=== PATIENT | male | born 1975 | race Caucasian/White ===

== ENCOUNTER → 2016-06-20 | Outpatient (REF) | payer OTHER | LOC: M SFHCADAM 16:31 | PROVIDERS: ATTEND Family Medicine | DX: E11.9 Type 2 diabetes mellitus without complications (principal) ==

== ENCOUNTER → 2016-11-22 | Outpatient (REF) | payer OTHER | LOC: M SFHCADAM 16:50 | PROVIDERS: ATTEND Family Medicine | DX: E11.9 Type 2 diabetes mellitus without complications (principal) ==

== ENCOUNTER → 2017-07-28 | Outpatient (REF) | payer OTHER ==
[2017-07-28 20:10] LABS: BASO # 0.1 10^3/uL (0.0-0.2); BASO % 0.9 % (0.0-1.0); EOS # 0.2 10^3/uL (0.0-0.50); EOS % 2.2 % (0.0-3.0); HEMATOCRIT 46.3 % (42.0-52.0); HEMOGLOBIN 15.7 g/dl (14.0-18.0); IMMATURE GRANULOCYTE % 0.3 % (0-3.0); LYMPH # 3.4 10^3/uL (1.5-4.5); LYMPH % 43.6 % (24.0-44.0); MEAN CORPUSCULAR HEMOGLOBIN 29.7 pg (27.0-33.0); MEAN CORPUSCULAR HGB CONC 33.9 g/dl (32.0-36.5); MEAN CORPUSCULAR VOLUME 87.5 fl (80.0-96.0); MONO # 0.5 10^3/uL (0.0-0.8); MONO % 5.8 % (0.0-5.0); NEUTROPHILS # 3.6 10^3/uL (1.8-7.7); NEUTROPHILS % 47.2 % (36.0-66.0); PLATELET COUNT, AUTOMATED 262 10^3/uL (150-450); RED BLOOD COUNT 5.29 10^6/uL (4.30-6.10); RED CELL DISTRIBUTION WIDTH 12.4 % (11.5-14.5); WHITE BLOOD COUNT 7.7 10^3/uL (4.0-10.0)
[2017-07-28 20:16] LABS: ALBUMIN 4.1 GM/DL (3.2-5.2); ALBUMIN/GLOBULIN RATIO 1.28 (1.00-1.93); ALKALINE PHOSPHATASE 59 U/L (45-117); ALT/SGPT 45 U/L (12-78); ANION GAP 9 MEQ/L (8-16); AST/SGOT 27 U/L (7-37); BILIRUBIN,TOTAL 0.4 MG/DL (0.2-1.0); BLOOD UREA NITROGEN 15 MG/DL (7-18); CALCIUM LEVEL 9.8 MG/DL (8.5-10.1); CARBON DIOXIDE LEVEL 29 MEQ/L (21-32); CHLORIDE LEVEL 103 MEQ/L (98-107); CREATININE FOR GFR 0.91 MG/DL (0.70-1.30); GLOMERULAR FILTRATION RATE > 60.0 (>60); GLUCOSE, FASTING 136 MG/DL (70-100); POTASSIUM SERUM 4.2 MEQ/L (3.5-5.1); SODIUM LEVEL 141 MEQ/L (136-145); TOTAL PROTEIN 7.3 GM/DL (6.4-8.2)
[2017-07-28 21:00] LABS: ESTIMATED AVERAGE GLUCOSE 163 MG/DL (60-110); HEMOGLOBIN A1c 7.3 %
== END ==
LOC: M SFHCADAM 16:14
DX: E11.9 Type 2 diabetes mellitus without complications (principal)

== ENCOUNTER → 2017-07-28 | Outpatient (CLI) | payer OTHER | LOC: M ADAMS 16:10 | DX: M19.011 Primary osteoarthritis, right shoulder (principal); M19.012 Primary osteoarthritis, left shoulder | CPT/HCPCS: 73030 ==

== ENCOUNTER → 2017-12-08 | Outpatient (REF) | payer OTHER ==
[2017-12-08 20:11] LABS: ESTIMATED AVERAGE GLUCOSE 183 MG/DL (60-110)
== END ==
LOC: M SFHCADAM 15:16
DX: E11.9 Type 2 diabetes mellitus without complications (principal)

== ENCOUNTER → 2017-12-31 | Outpatient (REF) | payer OTHER ==
[2017-12-31 20:57] LABS: CREATININE, URINE 51.5 MG/DL; MALB URINE SIEMENS 6.2 MG/L
== END ==
LOC: M SFHCADAM 17:22
DX: E11.9 Type 2 diabetes mellitus without complications (principal)
CPT/HCPCS: 82043

== ENCOUNTER 2019-03-07 12:12 | Emergency (ER) | payer OTHER ==
[~2019-03-07] VITALS: Ht 182.9 cm; Wt 105.4 kg
[2019-03-07] MEDS ORDERED: ASPI81CH33 PO (12:26)
[2019-03-07] MEDS ORDERED: GLIP5TAB8 PO (12:26)
[2019-03-07] MEDS ORDERED: METF500T13 PO (12:26)
[2019-03-07 13:47] LABS: BASO # 0.1 10^3/uL (0.0-0.2); BASO % 0.9 % (0.0-1.0); EOS # 0.1 10^3/uL (0.0-0.5); EOS % 1.3 % (0.0-3.0); HEMATOCRIT 47.1 % (42.0-52.0); HEMOGLOBIN 16.2 g/dl (13.5-17.5); LYMPH # 2.4 10^3/uL (1.5-5.0); LYMPH % 30.8 % (24.0-44.0); MEAN CORPUSCULAR HEMOGLOBIN 29.5 pg (27.0-33.0); MEAN CORPUSCULAR HGB CONC 34.4 g/dl (32.0-36.5); MEAN CORPUSCULAR VOLUME 85.6 fl (80.0-96.0); MONO # 0.4 10^3/uL (0.0-0.8); MONO % 5.5 % (0.0-5.0); NEUTROPHILS # 4.8 10^3/uL (1.5-8.5); NEUTROPHILS % 61.1 % (36.0-66.0); PLATELET COUNT, AUTOMATED 230 10^3/uL (150-450); WHITE BLOOD COUNT 7.8 10^3/uL (4.0-10.0)
--- NOTE | 2019-03-07 14:26 | REP ---
LUMBAR SPINE COMPLETE: 03/07/2019. Clinical history: Trauma, fell. Sacral coccygeal pain. Comparison: Sacrum, coccyx this date. Findings: The normal lordosis is maintained. There is very slight narrowing at the L5-S1 disc space but no other disc space narrowing and no compression deformity of destructive lesion. Some minor hypertrophic facet changes at L5-S1 but no spondylolysis or spondylolisthesis. AP view shows pedicles, spinous and transverse processes all intact. Lower thoracic vertebral levels and visualized ribs intact. Sacral ala, foramina, SI joints unremarkable. The iliac wings and the hip joint spaces are symmetric and preserved. Impression: 1. Negative lumbar spine series for compression fracture, malalignment or spondylolysis. There is minimal degenerative disc change at L5-S1. No other finding. Electronically Signed by Rome Rea MD 03/07/2019 07:07 P
--- NOTE | 2019-03-07 14:30 | REP ---
SACRUM COCCYX: 03/07/2019. Clinical history: Trauma, patient fell with pain radiating into the back. States "tail bone injury" Comparison: Lumbar series today. Findings: Three views were provided. Inlet, outlet view shows sacral ala and foramina symmetric. SI joints symmetric and normal. The pelvic ring intact. Pubic rami, symphysis pubis were intact. Visualized hips symmetric and unremarkable. There are a few pelvic phleboliths. Lateral view shows asymmetric anterior widening of the space between the S5 lowermost sacral segment and the first coccygeal segment. This may be chronic or acute. Anterior angulation of the distal three segments may also represent a normal appearance. Please correlate clinically. Impression: 1. Sacral ala, foramina and SI joints were symmetric and grossly unremarkable. 2. Asymmetric widening anteriorly at the articulation between the first coccygeal segment and the fifth sacral segment seen on the lateral view. This may be acute or chronic. Please correlate clinically. No displaced fracture. Electronically Signed by Rome Rea MD 03/07/2019 07:07 P
[2019-03-07] MEDS ORDERED: KETOROLAC 30 MG/ML VIAL (J1885) IM ONE (15:00)
[2019-03-07 15:32] VITALS: BP 157/86
[2019-03-07] MEDS ORDERED: GABA-1171 PO (15:39)
[2019-03-07] MEDS ORDERED: NORC1TAB7 PO (15:39)
[2019-03-07] MEDS ORDERED: IBUP80TA PO (15:39)
--- NOTE | 2019-03-08 07:33 | REP ---
CT LUMBAR SPINE WITHOUT CONTRAST: 03/07/2019. Clinical history: Back injury, low back pain. Comparison: Lumbar spine x-ray today. Technique: Axial images with coronal and sagittal reconstructions are reviewed. Normal lordosis is maintained. There is narrowing posteriorly at the L5-S1 level with the remainder of that disc height preserved. The other disc space heights and all vertebral body heights are intact. I see no spondylolysis or spondylolisthesis. The lower aspect of T12 and associated ribs were intact. The T12-L1 level shows no disc bulge or herniation and no spinal or foraminal stenosis. At L1-2, there is no disc bulge or herniation and no spinal or foraminal stenosis. At L2-3, minimal disc bulge flattening the ventral thecal sac but no central canal or foraminal stenosis. At L3-4, there is mild disc bulge flattening the ventral thecal sac. Ligamentum flavum hypertrophy is noted. Cross-sectional area of the canal is mildly diminished. Foramina are adequate. At L4-5, there is broad-based disc bulge and some ligamentum hypertrophy. Cross-sectional area of the canal is slightly decreased. The foramina were grossly intact. At L5-S1, there is broad-based disc bulge. The foramina may have encroachment due to the bulge extending into both foramina. Impression: 1. Multilevel degenerative disc disease with disc bulges suggested at L2-3 through L5-S1. Some central canal stenosis due to combined factors at L3-4 and L4-5, minimally at L5-S1. 2. Some foraminal encroachment at L5-S1 is suggested and likely at L4-L5 as well. These findings appear chronic. No fracture or other acute finding. Electronically Signed by Rome Rea MD 03/08/2019 08:49 A
== END 2019-03-07 15:47 | disposition home or self-care (01) ==
LOC: M ED 12:12
DX: S30.0XXA Contusion of lower back and pelvis, initial encounter (principal); W18.39XA Other fall on same level, initial encounter; Y92.89 Other specified places as the place of occurrence of the external cause; M48.061 Spinal stenosis, lumbar region without neurogenic claudication; M51.17 Intervertebral disc disorders with radiculopathy, lumbosacral region; E11.9 Type 2 diabetes mellitus without complications; M10.9 Gout, unspecified; M41.9 Scoliosis, unspecified; Z79.899 Other long term (current) drug therapy; Z79.84 Long term (current) use of oral hypoglycemic drugs; Z79.82 Long term (current) use of aspirin
CPT/HCPCS: 36415; 72110; 72131; 72220; 80047; 85025; 96372; 99283; J1885

== ENCOUNTER → 2019-03-24 | Outpatient (REF) | payer OTHER ==
[~2019-03-24] MED LIST: ASPI81CH33 PO; GABA-1171 PO; GLIP5TAB8 PO; IBUP80TA PO; METF500T13 PO; NORC1TAB7 PO
[2019-03-24 20:26] LABS: HEMOGLOBIN A1c 10.6 %
== END ==
LOC: M SFHCADAM 19:13
PROVIDERS: ATTEND Family Medicine
DX: E11.65 Type 2 diabetes mellitus with hyperglycemia (principal)

== ENCOUNTER → 2019-07-19 | Outpatient (REF) | payer OTHER, SELFPAY ==
[2019-07-19 17:19] LABS: HEMOGLOBIN A1c 8.2 %
== END ==
LOC: M SFHCADAM 11:50
PROVIDERS: ATTEND Family Medicine
DX: E11.65 Type 2 diabetes mellitus with hyperglycemia (principal)

== ENCOUNTER → 2020-07-13 | Outpatient (REF) | payer OTHER ==
[2020-07-13 17:35] LABS: HEMOGLOBIN A1c 9.9 %
== END ==
LOC: M SFHCADAM 13:30
PROVIDERS: ATTEND Family Medicine
DX: E11.65 Type 2 diabetes mellitus with hyperglycemia (principal); E78.5 Hyperlipidemia, unspecified; E66.9 Obesity, unspecified

== ENCOUNTER → 2020-08-01 | Outpatient (REF) | payer OTHER ==
[2020-08-01 13:43] LABS: ALBUMIN 3.7 GM/DL (3.2-5.2); ALT/SGPT 35 U/L (12-78); BILIRUBIN,TOTAL 0.6 MG/DL (0.2-1.0); BLOOD UREA NITROGEN 10 MG/DL (7-18); CALCIUM LEVEL 9.4 MG/DL (8.5-10.1); CARBON DIOXIDE LEVEL 29 MEQ/L (21-32); CHLORIDE LEVEL 103 MEQ/L (98-107); CHOLESTEROL LEVEL 129 MG/DL (<200); CHOLESTEROL RISK RATIO 3.225 (<5); CREATININE FOR GFR 0.86 MG/DL (0.70-1.30); GLOMERULAR FILTRATION RATE > 60.0 (>60); GLUCOSE, FASTING 195 MG/DL (70-100); HDL CHOLESTEROL 40 MG/DL (>40); LDL CHOLESTEROL 67 MG/DL (<100); NON-HDL-C 89 MG/DL; POTASSIUM SERUM 4.7 MEQ/L (3.5-5.1); SODIUM LEVEL 139 MEQ/L (136-145); TOTAL PROTEIN 6.8 GM/DL (6.4-8.2); TRIGLYCERIDES LEVEL 112 MG/DL (<150)
== END ==
LOC: M SFHCADAM 08:23
PROVIDERS: ATTEND Family Medicine
DX: E11.65 Type 2 diabetes mellitus with hyperglycemia (principal); E78.5 Hyperlipidemia, unspecified; E66.9 Obesity, unspecified

== ENCOUNTER → 2020-10-06 | Outpatient (REF) | payer OTHER ==
[2020-10-06 17:29] LABS: HEMOGLOBIN A1c 6.6 %
== END ==
LOC: M SFHCADAM 15:17
PROVIDERS: ATTEND Family Medicine
DX: E11.9 Type 2 diabetes mellitus without complications (principal)

== ENCOUNTER → 2021-06-25 | Outpatient (REF) | payer OTHER ==
[2021-06-25 18:25] LABS: HEMOGLOBIN A1c 8.7 %
== END ==
LOC: M SFHCADAM 14:04
PROVIDERS: ATTEND Family Medicine
DX: E11.9 Type 2 diabetes mellitus without complications (principal); F32.9 Major depressive disorder, single episode, unspecified

== ENCOUNTER → 2021-09-03 | Outpatient (REF) | payer OTHER ==
[2021-09-03 13:43] LABS: CREATININE, URINE 99.2 MG/DL; MALB URINE SIEMENS 11.4 MG/L; MAU/CREAT RATIO 11.4 MCG/MG (0.0-30.0)
== END ==
LOC: M SFHCADAM 12:39
PROVIDERS: ATTEND Family Medicine
DX: E11.65 Type 2 diabetes mellitus with hyperglycemia (principal)

== ENCOUNTER → 2021-10-05 | Outpatient (REF) | payer OTHER | LOC: M SFHCADAM 12:34 | PROVIDERS: ATTEND Family Medicine | DX: J02.9 Acute pharyngitis, unspecified (principal); R05.9 Cough, unspecified ==

== ENCOUNTER → 2021-12-07 | Outpatient (REF) | payer OTHER | LOC: M SFHCADAM 16:54 | PROVIDERS: ATTEND Family Medicine | DX: R09.81 Nasal congestion (principal); Z11.52 Encounter for screening for COVID-19 ==

== ENCOUNTER → 2022-09-26 | Outpatient (REF) | payer OTHER ==
[2022-09-26 17:02] LABS: ALBUMIN 4.2 G/DL (3.2-5.2); ALKALINE PHOSPHATASE 65 U/L (46-116); ALT/SGPT 25 U/L (7.0-40); AST/SGOT 18 U/L (<34); BILIRUBIN,TOTAL 0.6 MG/DL (0.3-1.2); BLOOD UREA NITROGEN 14 MG/DL (9-23); CALCIUM LEVEL 9.5 MG/DL (8.5-10.1); CARBON DIOXIDE LEVEL 28 MMOL/L (20-31); CHLORIDE LEVEL 105 MMOL/L (98-107); CREATININE FOR GFR 0.89 MG/DL (0.70-1.30); GLOMERULAR FILTRATION RATE > 60.0 (>60); GLUCOSE, FASTING 94 MG/DL (60-100); POTASSIUM SERUM 4.3 MMOL/L (3.5-5.1); SODIUM LEVEL 139 MMOL/L (136-145); TOTAL PROTEIN 7.2 G/DL (5.7-8.2)
[2022-09-26 17:38] LABS: HEMOGLOBIN A1c 7.7 % (4.0-6.0)
== END ==
LOC: M SFHCADAM 13:57
PROVIDERS: ATTEND Family Medicine
DX: E11.65 Type 2 diabetes mellitus with hyperglycemia (principal)

== ENCOUNTER → 2023-02-03 | Outpatient (CLI) | payer OTHER | LOC: M CARPUL 07:56 | PROVIDERS: ATTEND Physician Assistant | DX: R05.3 Chronic cough (principal) ==

== ENCOUNTER → 2023-02-17 | Outpatient (CLI) | payer OTHER | LOC: M RAD 08:32 | PROVIDERS: ATTEND Physician Assistant | DX: M79.604 Pain in right leg (principal) ==

== ENCOUNTER → 2023-09-08 | Outpatient (REF) | payer OTHER ==
[~2023-09-08] MED LIST changes: +GLIP5TAB17 PO; -GLIP5TAB8 PO
[2023-09-08 18:45] LABS: BLOOD UREA NITROGEN 19 MG/DL (9-23); CALCIUM LEVEL 10.4 MG/DL (8.5-10.1); CARBON DIOXIDE LEVEL 30 MMOL/L (20-31); CHLORIDE LEVEL 101 MMOL/L (98-107); CREATININE FOR GFR 0.95 MG/DL (0.70-1.30); GLOMERULAR FILTRATION RATE > 60.0 (>60); GLUCOSE, FASTING 101 MG/DL (60-100); POTASSIUM SERUM 4.6 MMOL/L (3.5-5.1); SODIUM LEVEL 136 MMOL/L (136-145)
[2023-09-08 19:26] LABS: HEMOGLOBIN A1c 7.4 % (4.0-6.0)
== END ==
LOC: M SFHCADAM 15:23
PROVIDERS: ATTEND Family Medicine
DX: E11.9 Type 2 diabetes mellitus without complications (principal)

== ENCOUNTER 2024-06-17 09:16 | Day surgery (SDC) | payer OTHER ==
[~2024-06-17] VITALS: Ht 182.9 cm; Wt 101.6 kg
[~2024-06-17 09:16] MED LIST changes: +ACE65ERTAB PO; +ATOR1TAB19 PO; +DULA4.5P SC; +LIDOCAINE 2% 100MG/5ML SDV (FOR ANES.) As Ordered ONE; +LISI30TA4 PO; +METF10004 PO; +propofoL 200 MG/20 ML VIAL As Ordered ONE
[2024-06-17] MEDS ORDERED: GLYCOPYRROLATE INJ 0.2 MG/ML 2 ML VIAL As Ordered ONE (11:06)
[2024-06-17 11:25] VITALS: TEMP 97.2
[2024-06-17 12:02] VITALS: BP 91/58; O2SAT 95
== END 2024-06-17 12:17 | disposition home or self-care (01) ==
LOC: M OPP 09:16
PROVIDERS: ATTEND Internal Medicine Gastroenterology
DX: Z12.11 Encounter for screening for malignant neoplasm of colon (principal); K63.5 Polyp of colon; K57.30 Diverticulosis of large intestine without perforation or abscess without bleeding; Z80.0 Family history of malignant neoplasm of digestive organs; K64.8 Other hemorrhoids; R12 Heartburn; K21.00 Gastro-esophageal reflux disease with esophagitis, without bleeding; Z79.4 Long term (current) use of insulin; Z79.899 Other long term (current) drug therapy
CPT/HCPCS: 43239; 45385; 88305; J1596

== ENCOUNTER → 2024-08-24 | Outpatient (REF) | payer OTHER ==
[~2024-08-24] MED LIST changes: -LIDOCAINE 2% 100MG/5ML SDV (FOR ANES.) As Ordered ONE; -propofoL 200 MG/20 ML VIAL As Ordered ONE
[2024-08-24 14:41] LABS: ALBUMIN 3.9 G/DL (3.2-5.2); ALKALINE PHOSPHATASE 60 U/L (40-129); ALT/SGPT 21 U/L (7.0-40); AST/SGOT 15 U/L (<34); BILIRUBIN,TOTAL 0.7 MG/DL (0.3-1.2); BLOOD UREA NITROGEN 16 MG/DL (9-23); CALCIUM LEVEL 9.4 MG/DL (8.5-10.1); CARBON DIOXIDE LEVEL 27 MMOL/L (20-31); CHLORIDE LEVEL 105 MMOL/L (98-107); CREATININE FOR GFR 0.87 MG/DL (0.70-1.30); GLOMERULAR FILTRATION RATE > 60.0 (>60); GLUCOSE, FASTING 155 MG/DL (60-100); POTASSIUM SERUM 5.6 MMOL/L (3.5-5.1); SODIUM LEVEL 142 MMOL/L (136-145); TOTAL PROTEIN 7.1 G/DL (5.7-8.2)
[2024-08-24 14:44] LABS: MAU/CREAT RATIO 8.4 MCG/MG (0.0-30.0)
[2024-08-24 14:46] LABS: HEMOGLOBIN A1c 8.3 % (4.0-6.0)
== END ==
LOC: M SFHCADAM 10:50
PROVIDERS: ATTEND Family Medicine
DX: E11.9 Type 2 diabetes mellitus without complications (principal)